=== PATIENT | female | born 1985 | race African-American/Black ===

== ENCOUNTER 2016-10-14 17:24 | Emergency (ER) | payer OTHER ==
[2016-10-14 17:26] VITALS: BP 119/67; PULSE 66; RESP 12; TEMP 98.6; O2SAT 98
[2016-10-14] MEDS ORDERED: CYCL1TAB29 PO (18:28)
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
== END 2016-10-14 18:51 | disposition home or self-care (01) ==
LOC: NEPB 17:24
DX: S16.1XXA Strain of muscle, fascia and tendon at neck level, initial encounter (principal); V47.5XXA Car driver injured in collision with fixed or stationary object in traffic accident, initial encounter
CPT/HCPCS: 99283